=== PATIENT | female | born 1985 | race Caucasian/White ===

== ENCOUNTER 2016-03-30 19:53 | Emergency (ER) | payer OTHER ==
[2016-03-30] MEDS ORDERED: MORPHINE SULFATE 4 MG/ML SYRINGE ONE (21:44)
[2016-03-30] MEDS ORDERED: PROMETHAZINE HCL 25 MG/ML VIAL ONE (21:44)
[2016-03-30] MEDS ORDERED: SODIUM CHLORIDE 0.9% 1,000 ML ONE (21:44)
[2016-03-30 22:01] LABS: ABSOLUTE NEUTROPHIL COUNT 16.8 K/mm3 (1.8-7.7); BASO % 0.2 % (0.2-1.0); EOS # 0.1 (0.0-0.5); EOS % 0.4 % (0.9-2.9); HEMATOCRIT 35.2 % (37.0-47.0); IMM NEUT # 0.1 K/mm3 (0-0.2); IMM NEUT% 0.6 % (0-1); LYMPH # 1.3 (1.0-4.8); LYMPH % 6.5 % (15-45); MEAN CELL VOLUME 81.5 fl (81.0-99.0); MEAN CORPUSCULAR HEMOGLOBIN 25.5 pg (27.0-31.0); MEAN CORPUSCULAR HGB CONC 31.3 g/dl (33.0-37.0); MEAN PLATELET VOLUME 8.6 fl (7.4-10.4); MONO # 1.9 (0.0-0.8); MONO % 9.4 % (4-12); NEUT % 82.9 % (43-75); PLATELET COUNT 627 K/mm3 (130-400); RED CELL DISTRIBUTION WIDTH 14.5 % (11.5-14.5)
[2016-03-30 22:15] LABS: ALB/GLOB RATIO 0.7 (>1.0); ALBUMIN 2.8 gm/dL (3.5-5.7); BLOOD UREA NITROGEN 15 mg/dL (7-25); BUN/CREATININE RATIO 9 (6-20); GLOMERULAR FILTRATION RATE 38 mL/min (60-107)
[2016-03-30 22:29] LABS: LIPASE 1 U/L (11-82)
[2016-03-30 22:35] LABS: BAND 0 % (0-10); BASOPHIL 0 % (0-1); EOSINOPHIL 1 % (1-3); LYMPHOCYTE 8 % (15-45); MONOCYTE 7 % (4-12); NEUTROPHILS 84 % (43-75); PLATELET ESTIMATE INCREASED (NORMAL); TOTAL CELLS COUNTED 100
[2016-03-30 22:37] LABS: ALT/SGPT < 5 U/L (7-52)
== END 2016-03-30 22:52 | disposition home or self-care (01) ==
LOC: ED 19:53
DX: K52.9 Noninfective gastroenteritis and colitis, unspecified (principal); E66.9 Obesity, unspecified